=== PATIENT | male | born 1970 | race Caucasian/White ===

== ENCOUNTER → 2018-07-04 | Outpatient (CLI) | payer MEDICAID ==
--- NOTE | 2018-07-04 12:01 | RADIOLOGY IMAGING REPORT ---
[place] [facility] [place] NAME: Aidan Whitney : 1970 MR: [id number] V: [id number] EXAM DATE: ORDERING PHYSICIAN: KAREEN SAMANO TECHNOLOGIST: Location: [facility] [place] Patient: Aidan Whitney : 1970 Visit/Account:[id number] Date of Sevice: 07/04/2018 Exam type: XR BILATERAL HAND 3 VIEWS/MORE History: Bilateral wrist pain that radiates in the thumbs, right greater than left Comparison: None. Findings: Left hand three views of the left hand were submitted.. There are moderate degenerative changes invo lving the DIP joint of the left third finger. There are very mild joint changes involving the first carpometacarpal articulation. No evidence of acute fracture dislocation or radiopaque soft tissue fo reign body involving the left hand. Three views of the right hand were submitted. There are very mild degenerative changes at the right first carpal metacarpal articulation. There are moderate degenerative changes involving the navicula r trapezium articulation. No radiopaque soft tissue foreign body seen IMPRESSION: 1. 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
--- NOTE | 2018-07-04 13:12 | RADIOLOGY IMAGING REPORT ---
FACILITY: [facility] - [place] PATIENT NAME: Aidan Whitney : 1970 MR: [id number] V: [id number] EXAM DATE: ORDERING PHYSICIAN: KAREEN SAMANO TECHNOLOGIST: Location: [facility] Patient: Aidan Whitney : 1970 Visit/Account:[id number] Date of Sevice: 07/04/2018 XR WRIST 3 OR MORE VIEWS Given history: Bilateral wrist pain radiating to the thumbs right worse than left COMPARISON STUDIES: NONE FINDINGS: Right wrist: There is mild joint space narrowing and eburnation seen at the scaphoid trapezium joint on one view. There is also a 3 x 4 mm oval calcification interposed between the trapezium and first metacarpal. This might, however represent a normal ossicle although loose body would be difficult to exclude. Minimal joint space narrowing radiocarpal joint. Remaining joints appear normal. Left hand: Very mild joint space narrowing at the first scaphotrapezium joint. Remaining joints othe rwise unremarkable. 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 Mild radiocarpal joint arthropathy bilaterally. Probable ossicle right first CMC joint and loose body considered less likely although not entirely ex cluded. Report Dictated By: Jesus Mendoza MD at 07/04/2018 12:58 PM Report E-Signed By: Jesus Mendoza MD at 07/04/2018 1:08 PM WSN:[email or web address]
== END ==
LOC: RAD 11:03
PROVIDERS: ATTEND Neurological Surgery
DX: M19.042 Primary osteoarthritis, left hand (principal); M19.041 Primary osteoarthritis, right hand

== ENCOUNTER → 2018-09-06 | Outpatient (CLI) | payer MEDICAID | LOC: RESP 19:10 | PROVIDERS: ATTEND Nurse Practitioner | DX: G47.33 Obstructive sleep apnea (adult) (pediatric) (principal); G47.37 Central sleep apnea in conditions classified elsewhere; G47.61 Periodic limb movement disorder ==

== ENCOUNTER → 2018-11-02 | Outpatient (CLI) | payer MEDICAID | LOC: RESP 19:17 | PROVIDERS: ATTEND Nurse Practitioner | DX: G47.37 Central sleep apnea in conditions classified elsewhere (principal); G47.33 Obstructive sleep apnea (adult) (pediatric); G47.36 Sleep related hypoventilation in conditions classified elsewhere; G47.61 Periodic limb movement disorder ==